=== PATIENT | male | born 1995 | race Caucasian/White ===

== ENCOUNTER 2018-10-21 13:59 | Day surgery (SDC) | payer OTHER ==
[~2018-10-21 13:59] MED LIST: CEFAZOLIN SODIUM 2 GM in DEXTROSE 5%-WATER 100 ML IV PRN; DEXAMETHASONE SOD PHOSPHATE INJ 4 MG/1 ML VIAL ONE; FENTANYL CITRATE INJ/PF 100 MCG/2 ML AMPUL ONE; MIDAZOLAM 2 MG/2 ML INJ ONE; ONDANSETRON HCL INJ/PF 4 MG/2 ML SDV ONE; PROPOFOL INJ 200 MG/20 ML VIAL IV ONE; SUCCINYLCHOLINE CHLORIDE INJ 200 MG/10 ML VIAL ONE
[2018-10-21] MEDS ORDERED: MORPHINE SULFATE 10 MG/ML INJ IV PRN ×2 (19:20→20:01)
[2018-10-21] MEDS ORDERED: MEPERIDINE HCL/PF INJ 25 MG/1 ML DISP.SYRIN IV PRN (19:20)
[2018-10-21] MEDS ORDERED: PROMETHAZINE HCL INJ 25 MG/1 ML VIAL IV PRN ×2 (19:20)
[2018-10-21] MEDS ORDERED: FENTANYL CITRATE INJ/PF 100 MCG/2 ML AMPUL IV PRN ×3 (19:20)
[2018-10-21] MEDS ORDERED: DIPHENHYDRAMINE HCL 50 MG/ML VIAL IV PRN (19:20)
[2018-10-21] MEDS ORDERED: ONDANSETRON HCL INJ/PF 4 MG/2 ML SDV IV PRN ×2 (19:20→20:01)
[2018-10-21] MEDS ORDERED: BUPIVACAINE HCL 0.5 % INJ/PF 30 ML SDV ONE (19:22)
[2018-10-21] MEDS ORDERED: OXYCODONE-ACETAMINOPHEN 5-325 MG TABLET PO PRN (20:01)
--- NOTE | 2018-10-21 20:01 | Discharge Summary ---
Discharge Summary (SDC) - Discharge Final Diagnosis: Right fifth metacarpal shaft fracture Date of Surgery: 10/21/18 Discharge Date: 10/21/18 Condition: Good Treatment or Instructions: Schedule Follow Up w/ Dr. Kain Guerra @ [facility] to be seen in 10-14 days or as scheduled [place]: [place]: [place]: Ice and elevate Keep splint clean/dry/intact, do not remove. If your fingers become numb please unwrap the [place] wrap but leave the splint in place, if the sensation does not return within 30 minutes please return to the emergency department. May begin finger range of motion attempting to make full fist. Please use ibuprofen (Motrin or Advil) 600-800 mg every 8 hours as needed for pain or fever DO NOT TAKE w/ TORADOL may use once TORADOL complete. You may also use acetaminophen (Tylenol) 1000 mg every 4-6 hours as needed for pain or fever. Please be aware that many medications contain acetaminophen, do not exceed a total of 1000 mg of acetaminophen every 6 hours. If ibuprofen and acetaminophen are not sufficient for your pain you may take the Percocet/Rico. Please be aware that the Percocet/Rico does contain Tylenol. Stool softener of choice when on pain medication. USE OF [id number] IBUPROFEN: Ibuprofen (Advil, Nuprin, Medipren, Motrin IB) is a medication for fever and pain control. In addition, it has anti- inflammatory effects which may be beneficial, especially in the treatment of injuries. It's best to take ibuprofen with food. Persons with ulcer disease or allergy to aspirin should notify their physician of this before taking ibuprofen. Ibuprofen can be given every four to six hours, for a total of four doses daily. Age Pain or fever dose Antiinflammatory dose 6-8 yr 200 mg (1 tab) 200 mg (1 tab) 9-11 yr 200 mg (1 tab) 200-400 mg (1-2 tab) 11-14 yr 200-400 mg (1-2 tab) 400 mg (2 tab) 15-adult 400 mg (2 tab) 600 mg (3 tab) ORAL NARCOTIC MEDICATION: You have been given a prescription for pain control. This medication is a narcotic. It's best taken with food, as nausea can result if taken on an empty stomach. Don't operate machinery or drive within six hours of taking this medication. Do not combine this medicine with alcohol, or with any medication which can cause sedation (such as cold tablets or sleeping pills) unless you get permission from the physician. Narcotics tend to cause constipation. If possible, drink plenty of fluids and eat a diet high in fiber and fruits. Please be aware that prescription narcotics also have the potential for abuse. People become addicted to these medications because of the general sense of wellbeing that they induce. This feeling along with a significant reduction in tension, anxiety, and aggression provides a stimulating seductive quality to these drugs. Once your pain is under control, we encourage you to discard your unused narcotics. Prescriptions: Oxycodone HCl/Acetaminophen [Percocet 5-325 mg Tablet] 1 tab PO Q6 PRN #25 tab PRN Reason: Discharge Diet: As Tolerated Respiratory Treatments at Home: Deep Breathing/Coughing Discharge Activity: No Lifting Over 10 Pounds, No Lifting/Push/Pulling Report the Following to Your Physician Immediately: Fever over 101 Degrees, Unusual Bleeding, Redness, Swelling, Warmth, Increased Soreness
--- NOTE | 2018-10-21 20:01 | Operative Report ---
Operative Report DATE OF SURGERY: 10/21/18 PREOPERATIVE DIAGNOSIS: Right fifth metacarpal malunion POSTOPERATIVE DIAGNOSIS: Same OPERATION: Corrective osteotomy right fifth metacarpal shaft fracture malunion with internal fixation SURGEON: RICHY MOTTA ANESTHESIA: GA COMPLICATIONS: None ESTIMATED BLOOD LOSS: Minimal PROCEDURE: Indication for above procedure: 23-year-old male who stained a injury to his right hand when residual refill on his hand 2 months ago. Patient was originally treated with a cast but deformity was noted that point patient was sent for further evaluation and treatment. Patient elected to proceed with operative intervention risks and benefits were explained patient verbalized understanding consented for surgical procedure. Procedure In Detail: Patient was seen and evaluated in the preoperative holding area. The RIGHT upper extremity was initialized and marked. Patient received 2g of Ancef IV for bacterial prophylaxis. Patient was taken back to the operative room where transferred to the operative table and placed under general anesthesia. Once they were adequately anesthetized a nonsterile tourniquet was placed on the upper extremity. A surgical team debriefing was performed ensuring all instrumentation was available, the surgical procedure was discussed with possible concerns reviewed. The upper extremity was prepped with chlorhexidine and alcohol and draped in a sterile fashion. A timeout was done identifying correct patient, procedure and extremity everyone in attendance agree with this and verbalized no concerns. The extremity was exsanguinated the tourniquet was inflated to 250 mmHg. Longitudinal skin incision was made over the fracture deformity. Blunt dissection was performed in branch of the dorsal ulnar sensory nerve was identified and retracted. Extensor digiti minimi tendon was retracted in a radial direction to expose the underlying fracture. There was evidence of callus formation under C-arm fluoroscopy the initial fracture site was identified. With a small osteotome the dorsal cortex was osteotomized to but not through the far cortex thus not destabilizing the fifth metacarpal shaft. Small longitudinal skin incision was made over the fifth MCP joint. Blunt dissection was performed. Interval between the EDM and EDC was utilized and capsulotomy made to expose the metacarpal head. The dorsal third of the metacarpal head was localized for the starting point. K wire for the cannulated 3.0 mm Cathleen headless compression screws was then placed from the above starting point past the fracture site while reducing the metacarpal shaft. It was then confirmed on C-arm fluoroscopy that was in the center center position. A 40 mm x 3 mm headless compression screw was placed over the bone to ensure adequate length and diameter. The metacarpal head starting point was countersunk and a 3.0 mm x 40 mm headless compression screw was advanced past the fracture site obtaining excellent interfragmentary compression the head was countersunk under direct visualization and confirmed with fluoroscopy. At completion there is no evidence of malrotation with tenodesis. C-arm fluoroscopy was obtained demonstrating center position of the headless compression screw no evidence of shortening angulation or displacement. Wounds were then copiously irrigated with normal saline. Periosteum was closed over the previous fracture site. Interval between the EDM and EDC was closed with interrupted 3-0 Vicryl suture. Skin was closed with subcuticular 4-0 Mo nocryl reinforced with Dermabond and Steri-Strips. 20 cc of 0.5% bupivacaine without epinephrine was injected for postoperative pain control. Patient was placed in a volar splint immobilizing the MP joints leaving the IP joint free. Sponge counts, instrument counts, needle counts were correct. Patient was then awoken from anesthesia. Transferred from the operating room table to the operating room stretcher. There was no intraoperative complications patient tolerated procedure well stable to PACU. Postop plan: Patient will follow-up in the office in 2 weeks at which point we will place him in a removable brace and he will begin range of motion exercises. Will obtain x-rays at follow-up.
[2018-10-21] MEDS: MEPERIDINE HCL/PF INJ 25 MG/1 ML DISP.SYRIN ONE ×2 (20:04→20:09)
[2018-10-21] MEDS: FENTANYL CITRATE INJ/PF 100 MCG/2 ML AMPUL ONE ×2 (20:23→20:30)
[2018-10-21] MEDS ORDERED: OXYCODONE-ACETAMINOPHEN 5-325 MG TABLET ONE (21:04)
[2018-10-21 21:35] VITALS: BP 128/55
--- NOTE | 2018-10-22 08:31 | RADIOLOGY REPORT (SQ) ---
EXAM DESCRIPTION: NO CHG FLUORO; HAND RIGHT 3 VIEWS COMPLETED DATE/TIME: 10/21/2018 8:33 pm REASON FOR STUDY: ORIF 5TH METACARPAL S62.326P DISP FX OF SHAFT OF 5TH MC BONE, R HAND, 7THP COMPARISON: None. FLUOROSCOPY TIME: 1 minutes 29 seconds 7 Images saved to PACS TECHNIQUE: Intra-operative images acquired during surgical procedure to evaluate progress. NUMBER OF IMAGES: 7 LIMITATIONS: None. FINDINGS: Limited fluoroscopic images demonstrate evidence of cancellous screw fixation of the trans verse 5th metacarpal fracture. Please see operative report for detailed description. IMPRESSION: IMAGE(S) OBTAINED DURING PROCEDURE. COMMENT: Quality ID [id number]: Final reports for procedures using fluoroscopy that document radiation exp osure indices, or exposure time and number of fluorographic images (if radiation exposure indices are not available) Please consult full operative report of the attending physician for description of the procedure. TECHNICAL DOCUMENTATION: JOB ID: [id number] [employer]- All Rights Reserved Reading location - IP/workstation name: [email or web address]
--- NOTE | 2018-10-22 08:31 | RADIOLOGY REPORT (SQ) ---
EXAM DESCRIPTION: NO CHG FLUORO; HAND RIGHT 3 VIEWS COMPLETED DATE/TIME: 10/21/2018 8:33 pm REASON FOR STUDY: ORIF 5TH METACARPAL S62.326P DISP FX OF SHAFT OF 5TH MC BONE, R HAND, 7THP COMPARISON: None. FLUOROSCOPY TIME: 1 minutes 29 seconds 7 Images saved to PACS TECHNIQUE: Intra-operative images acquired during surgical procedure to evaluate progress. NUMBER OF IMAGES: 7 LIMITATIONS: None. FINDINGS: Limited fluoroscopic images demonstrate evidence of cancellous screw fixation of the trans verse 5th metacarpal fracture. Please see operative report for detailed description. IMPRESSION: IMAGE(S) OBTAINED DURING PROCEDURE. COMMENT: Quality ID [id number]: Final reports for procedures using fluoroscopy that document radiation exp osure indices, or exposure time and number of fluorographic images (if radiation exposure indices are not available) Please consult full operative report of the attending physician for description of the procedure. TECHNICAL DOCUMENTATION: JOB ID: [id number] [employer]- All Rights Reserved Reading location - IP/workstation name: [email or web address]
== END 2018-10-21 21:35 | disposition home or self-care (01) ==
LOC: OROUT 13:59
PROVIDERS: ATTEND Orthopaedic Surgery
DX: S62.326P Displaced fracture of shaft of fifth metacarpal bone, right hand, subsequent encounter for fracture with malunion (principal); W22.8XXD Striking against or struck by other objects, subsequent encounter; F17.210 Nicotine dependence, cigarettes, uncomplicated
CPT/HCPCS: 73130; 26615; J2250; J3490; J0690; J1100; J3010; J2175; J0330; J2405; J7060; J2704; 01830; C1713